=== PATIENT | female | born 1985 | race Caucasian/White ===

== ENCOUNTER 2019-03-11 03:38 | Emergency (ER) | payer BC, OTHER ==
--- NOTE | 2019-03-11 03:53 | ED Physician Documentation ---
PD HPI ABD PAIN - Stated complaint Stated Complaint: ABD PX - Chief complaint Chief Complaint: Abd Pain - History obtained from History obtained from: Patient - History of Present Illness Timing - onset: How many hours ago (2) Timing - duration: Hours (2) Timing - details: Abrupt onset, Still present Quality: Cramping, Aching, Pain Location: RUQ, Epigastric Radiation: Upper back Improved by: No: Laying still, Position Worsened by: Eating, Breathing, Palpation Associated symptoms: Nausea. No: Fever, Vomiting, Diarrhea, Constipation, Dysuria, Chest pain Similar symptoms before: Has not had sx before Recently seen: Not recently seen Review of Systems Constitutional: denies: Fever Nose: denies: Rhinorrhea / runny nose, Congestion Throat: denies: Sore throat Respiratory: denies: Cough GI: reports: Abdominal Pain, Nausea. 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 : None HEENT: None Psych: Anxiety Musculoskeletal: None Derm: Herpes zoster - Past Surgical History Past Surgical History: No /SHROUD LINE TIER: Dilation and currettage - Present Medications Home Medications: Ambulatory Orders Medication Instructions Recorded Confirmed Levonorgestrel [Mirena] 1 each IY DAILY 10/12/15 10/20/15 Famotidine 20 mg PO DAILY #30 tablet 03/11/19 Hydrocodone/Acetaminophen [[place] 1 each PO Q6H PRN #15 tablet 03/11/19 5-325 Tablet] Lidocaine Viscous 2% [Xylocaine 5 ml PO Q4H PRN #100 ml 03/11/19 Viscous 2%] Ondansetron Odt [Zofran] 4 mg TL Q6H PRN #15 tablet 03/11/19 - Allergies Allergies/Adverse Reactions: Allergies Allergy/AdvReac Type Severity Reaction Status Date / Time No Known Drug Allergies Allergy Verified 03/25/13 08:01 - Social History Does the pt smoke?: No Smoking Status: Never smoker Does the pt drink ETOH?: Yes Does the pt have substance abuse?: No - Immunizations Immunizations are current?: Yes - POLST Patient has POLST: No PD ED PE NORMAL - Vitals Vital signs reviewed: Yes - General General: Alert and oriented X 3, Well developed/nourished - HEENT HEENT: PERRL (nonicteric), Pharynx benign - Neck Neck: Supple, no meningeal sign, No adenopathy - Cardiac Cardiac: RRR, No murmur - Respiratory Respiratory: Clear bilaterally - Abdomen Abdomen: Normal bowel sounds, Soft, Non distended, No organomegaly, Other (very tender epigastric to RUQ area with guarding and percussion tenderness. ) - Back Back: No CVA TTP - Derm Derm: Normal color, Warm and dry - Extremities Extremities: Normal ROM s pain, No edema, No calf tenderness / cord - Neuro Neuro: Alert and oriented X 3, No motor deficit, Normal speech Results - Vitals Vitals: Vital Signs - 24 hr 03/11/19 03:45 Temperature 36.3 C L Heart Rate 78 Respiratory 16 Rate Blood Pressure 115/73 O2 Saturation 100 Oxygen O2 Source Room air - Labs Labs: Laboratory Tests 03/11/19 03/11/19 03/11/19 03:30 03:55 03:55 WBC 7.4 RBC 4.17 L Hgb 11.9 L Hct 36.5 L MCV 87.5 MCH 28.5 MCHC 32.6 RDW 13.6 Plt Count 244 MPV 8.3 Neut # (Auto) 3.1 Lymph # (Auto) 3.0 [place] # (Auto) 0.7 Eos # (Auto) 0.5 Baso # (Auto) 0.0 Absolute Nucleated RBC 0.00 Nucleated RBC % 0.0 Sodium 140 Potassium 3.9 Chloride 106 Carbon Dioxide 27 Anion Gap 7.0 BUN 10 Creatinine 1.0 Estimated GFR (MDRD) 63 L Glucose 102 H Calcium 9.0 Total Bilirubin 0.4 AST 23 ALT 13 Alkaline Phosphatase 54 Total Protein 7.0 Albumin 4.3 Globulin 2.7 Albumin/Globulin Ratio 1.6 Lipase 39 Urine Color YELLOW Urine Clarity CLEAR Urine pH 5.5 Ur Specific [place] >=1.030 H Urine Protein NEGATIVE Urine Glucose (UA) NEGATIVE Urine Ketones TRACE Urine Occult Blood NEGATIVE Urine Nitrite NEGATIVE Urine Bilirubin NEGATIVE Urine Urobilinogen 0.2 (NORMAL) Ur Leukocyte Esterase NEGATIVE Ur Microscopic Review NOT INDICATED Urine Culture Comments NOT INDICATED Urine HCG, Qual NEGATIVE PD MEDICAL DECISION MAKING - ED course Complexity details: re-evaluated patient (She had considerable improvement from the GI cocktail as well as morphine IV. Labs and ultrasound are normal. Presume gastritis or esophageal spasm.), considered differential (Consideration of gallbladder spasm given the abruptness and severity of the pain versus pancreatitis versus gastritis. Will check labs and ultrasound. Will give GI cocktail and pain medicine.), d/w patient Departure - Departure Disposition: 01 Home, Self Care Clinical Impression: Epigastric pain Gastritis Qualifiers: Gastritis type: unspecified gastritis Chronicity: acute Gastritis bleeding: without bleeding Qualified Code(s): K29.00 - Acute gastritis without bleeding Condition: Stable Record reviewed to determine appropriate education?: Yes Instructions: ED PUD Vs Gastritis Prescriptions: Famotidine 20 mg PO DAILY #30 tablet Hydrocodone/Acetaminophen [[place] 5-325 Tablet] 1 each PO Q6H PRN #15 tablet PRN Reason: Pain Lidocaine Viscous 2% [Xylocaine Viscous 2%] 5 ml PO Q4H PRN #100 ml PRN Reason: Pain Ondansetron Odt [Zofran] 4 mg TL Q6H PRN #15 tablet PRN Reason: Nausea / Vomiting Comments: Stay well-hydrated. [place] food for a day or 2 at least. Take an acid reducing medicines such as famotidine daily for the next few weeks. Use antacid such as Maalox or Mylanta if needed for stomach discomfort. You can add in some lidocaine to that if needed. Avoid NSAIDs. Use Tylenol or hydrocodone as needed for pain and ondansetron for nausea. Rest off work and school today. Recheck if not improving well over the next few days or if you have a lot of recurrent episodes not improved with medicines. Forms: Activity restrictions
[2019-03-11] MEDS ORDERED: LIDOCAINE VISCOUS 2% 15 ML UDC MM STA (04:00)
[2019-03-11] MEDS ORDERED: MAG HYDROX/AL HYDROX/SIMETH 30 ML UDC PO STA (04:00)
[2019-03-11] MEDS ORDERED: MORPHINE 10 MG/ML VIAL IVP STA (04:00)
[2019-03-11] MEDS ORDERED: ONDANSETRON 4 MG/2 ML VIAL IVP STA (04:01)
[2019-03-11 04:25] LABS: BASOPHILS % (AUTO) 0.4 %; EOSINOPHILS # (AUTO) 0.5 10^3/uL (0.0-0.7); EOSINOPHILS % (AUTO) 6.9 %; HGB - HEMOGLOBIN 11.9 g/dL (12.0-16.0); LYMPHOCYTES % (AUTO) 40.8 %; MEAN CORPUSCULAR HEMOGLOBIN 28.5 pg (27.0-31.0); MEAN CORPUSCULAR HGB CONC 32.6 g/dL (32.0-36.0); MEAN CORPUSCULAR VOLUME 87.5 fL (81.0-99.0); MEAN PLATELET VOLUME 8.3 fL (7.9-10.8); MONOCYTES # (AUTO) 0.7 10^3/uL (0.0-1.0); MONOCYTES % (AUTO) 9.4 %; NEUTROPHILS # (AUTO) 3.1 10^3/uL (1.5-6.6); NEUTROPHILS % (AUTO) 42.5 %; PLT - PLATELET COUNT 244 10^3/uL (130-450); RED BLOOD COUNT 4.17 10^6/uL (4.20-5.40); RED CELL DISTRIBUTION WIDTH 13.6 % (12.0-15.0); WHITE BLOOD COUNT 7.4 x10^3/uL (4.8-10.8)
[2019-03-11 04:30] LABS: BILIRUBIN,TOTAL 0.4 mg/dL (0.2-1.0)
[2019-03-11 04:31] LABS: ALBUMIN 4.3 g/dL (3.2-5.5); ALBUMIN/GLOBULIN RATIO 1.6 (1.0-2.2)
--- NOTE | 2019-03-11 05:25 | Ultrasound Report ---
Reason: epigastric/RUQ abd pain abruptly few hours ago Procedure Date: 03/11/2019 Accession Number: [id number] / [id number] Procedure: US - Abdomen Limited CPT Code: FULL RESULT: EXAM: ABDOMEN ULTRASOUND LIMITED, RUQ EXAM DATE: 03/11/2019 04:44 AM. CLINICAL HISTORY: Right upper quadrant and epigastric pain, abrupt onset a few hours ago. COMPARISON: None. TECHNIQUE: Real-time scanning was performed with static images obtained. FINDINGS: Liver: Normal echogenicity. No suspicious focal lesion. Liver measures 14.6 cm in length. Portal Vein: Patent with hepatopetal flow. Gallbladder: Mildly distended. There is no wall thickening. No pericholecystic fluid. A few dependent rounded abnormalities, nonmobile. These may be areas of adherent sludge and/or tiny polyps. Biliary System: CBD measures 5.1 mm. No intrahepatic or extrahepatic ductal dilatation. Pancreas: Normal appearing head and body. Other portions are obscured by overlying structures. Right Kidney: Visualized portions of the right kidney are without significant abnormality. Right kidney measures 10.2 cm in length. Other: None. IMPRESSION: 1. No acute cholecystitis. No biliary dilation. Mild gallbladder hydrops, nonspecific. RADIA
[2019-03-11 05:34] LABS: BILIRUBIN,URINE NEGATIVE (NEGATIVE); GLUCOSE, URINE (UA) NEGATIVE (NEGATIVE); KETONES,URINE (UA) TRACE mg/dL (NEGATIVE); LEUKOCYTE ESTERASE, URINE NEGATIVE (NEGATIVE); NITRITE,URINE NEGATIVE (NEGATIVE); OCCULT BLOOD,URINE NEGATIVE (NEGATIVE); PH,URINE 5.5 PH (5.0-7.5); PROTEIN,URINE NEGATIVE (NEGATIVE); UROBILINOGEN,URINE 0.2 (NORMAL) E.U./dL (NORMAL)
[2019-03-11 05:39] LABS: CLARITY,URINE CLEAR (CLEAR); HCG UR QUAL NEGATIVE
[2019-03-11 06:01] VITALS: BP 109/62
== END 2019-03-11 05:50 | disposition home or self-care (01) ==
LOC: ED 03:38
DX: K29.00 Acute gastritis without bleeding (principal)
CPT/HCPCS: 36415; 76705; 80053; 81003; 81025; 83690; 85025; 96374; 96375; 99283; A9270; 81001; 87086

== ENCOUNTER 2019-04-06 07:44 | Emergency (ER) | payer BC ==
[2019-04-06] MEDS ORDERED: SUCRALFATE 1 GM/10 ML UDC PO STA (08:49)
[2019-04-06] MEDS ORDERED: LIDOCAINE VISCOUS 2% 15 ML UDC MM STA (08:49)
[2019-04-06] MEDS ORDERED: MAG HYDROX/AL HYDROX/SIMETH 30 ML UDC PO STA (08:50)
--- NOTE | 2019-04-06 08:52 | ED Physician Documentation ---
PD HPI ABD PAIN - Stated complaint Stated Complaint: ABD PX - Chief complaint Chief Complaint: Abd Pain - History obtained from History obtained from: Patient, Family - History of Present Illness Timing - onset: Enter time (399), Today Timing - duration: Hours Timing - details: Abrupt onset, Still present Quality: Sharp, Pain Location: Epigastric Radiation: Upper back Improved by: Meds Associated symptoms: Nausea. No: Vomiting, Diarrhea, Constipation Similar symptoms before: Diagnosis (PUD) Recently seen: Emergency Dept - Additional information Additional information: 34-year-old female with a recent history of gastritis has developed acute epigastric pain again this morning. She was unable to get improvement with the medication she had for the GI cocktail. She states that she used Mylanta and 5 mL of viscous lidocaine without relief. She did have her gallbladder imaged and this was apparently negative. The patient reports the use of a glass of wine last night and she drinks infrequently. She denies any use of ibuprofen or Aleve. Review of Systems Constitutional: denies: Fever Eyes: denies: Decreased vision Ears: denies: Ear pain Nose: denies: Rhinorrhea / runny nose, Congestion Throat: denies: Sore throat Cardiac: denies: Chest pain / pressure, Palpitations Respiratory: denies: Dyspnea, Cough GI: reports: Abdominal Pain, Nausea. 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 : None HEENT: None Psych: Anxiety Musculoskeletal: None Derm: Herpes zoster - Past Surgical History Past Surgical History: No /MEAT BONER AND SLICER: Dilation and currettage - Present Medications Home Medications: Ambulatory Orders Medication Instructions Recorded Confirmed Famotidine 20 mg PO 04/06/19 Sucralfate [Carafate] 1 gm PO ACHS #60 tablet 04/06/19 - Allergies Allergies/Adverse Reactions: Allergies Allergy/AdvReac Type Severity Reaction Status Date / Time No Known Drug Allergies Allergy Verified 04/06/19 07:49 - Social History Does the pt smoke?: No Smoking Status: Never smoker Does the pt drink ETOH?: Yes Does the pt have substance abuse?: No - Immunizations Immunizations are current?: Yes - POLST Patient has POLST: No PD ED PE NORMAL - Vitals Vital signs reviewed: Yes (normal ) - General General: Alert and oriented X 3, No acute distress, Well developed/nourished - HEENT HEENT: Atraumatic, PERRL, EOMI - Neck Neck: Supple, no meningeal sign - Cardiac Cardiac: RRR, No murmur - Respiratory Respiratory: No respiratory distress, Clear bilaterally - Abdomen Abdomen: Soft, Other (epigastric and RUQ pain to palpation) - Back Back: No CVA TTP, No spinal TTP - Derm Derm: Normal color, Warm and dry, No rash - Extremities Extremities: No deformity, No edema - Neuro Neuro: Alert and oriented X 3, replenishment analyst 2-12 intact, No motor deficit, No sensory deficit, Normal speech Eye Opening: Spontaneous Motor: Obeys Commands Verbal: Oriented GCS Score: 15 - Psych Psych: Normal mood, Normal affect Results - Vitals Vitals: Vital Signs - 24 hr 04/06/19 07:48 Temperature 36.8 C Heart Rate 79 Respiratory 18 Rate Blood Pressure 120/66 O2 Saturation 95 Oxygen O2 Source Room air - Labs Labs: Laboratory Tests 04/06/19 04/06/19 04/06/19 07:50 07:55 07:55 WBC 6.3 RBC 4.41 Hgb 12.5 Hct 38.4 MCV 87.1 MCH 28.3 MCHC 32.4 RDW 13.3 Plt Count 253 MPV 8.5 Neut # (Auto) 2.5 Lymph # (Auto) 2.5 [place] # (Auto) 0.6 Eos # (Auto) 0.7 Baso # (Auto) 0.0 Absolute Nucleated RBC 0.00 Nucleated RBC % 0.0 Sodium 139 Potassium 4.1 Chloride 102 Carbon Dioxide 28 Anion Gap 9.0 BUN 12 Creatinine 1.1 H Estimated GFR (MDRD) 56 L Glucose 102 H Calcium 9.3 Total Bilirubin 0.4 AST 17 ALT 12 Alkaline Phosphatase 46 Total Protein 7.2 Albumin 4.3 Globulin 2.9 Albumin/Globulin Ratio 1.5 Lipase 32 Urine Color YELLOW Urine Clarity HAZY Urine pH 5.5 Ur Specific [place] 1.025 Urine Protein NEGATIVE Urine Glucose (UA) NEGATIVE Urine Ketones TRACE Urine Occult Blood NEGATIVE Urine Nitrite NEGATIVE Urine Bilirubin NEGATIVE Urine Urobilinogen 0.2 (NORMAL) Ur Leukocyte Esterase SMALL H Ur Microscopic Review INDICATED Urine Culture Comments Not Reportable Urine HCG, Qual NEGATIVE Procedures - Bedside sono Bedside sono by EMP: With use of bedside ultrasound the gallbladder is imaged it is distended there are no obvious stones it is sonographically tender and there is no wall thickening or pericholecystic fluid. Palpation of the gallbladder in this manner results and nausea. PD MEDICAL DECISION MAKING - ED course Complexity details: reviewed results, re-evaluated patient, considered differential, d/w patient, d/w family ED course: 34-year-old female with a history of gastritis has developed symptoms again this morning and she is administered a GI cocktail consisting of Carafate viscous lidocaine and Mylanta. The patient has improvement with these maneuvers and I will add Carafate into her regimen increase her Pepcid AC to twice per day and have her stop the alcohol. Departure - Departure Disposition: Home, Self Care Clinical Impression: Gastritis Qualifiers: Gastritis type: unspecified gastritis Chronicity: acute Gastritis bleeding: without bleeding Qualified Code(s): K29.00 - Acute gastritis without bleeding Instructions: ED PUD Vs Gastritis Follow-Up: Modesto Can MD [Provider Admit Priv/Credential] - Prescriptions: Sucralfate [Carafate] 1 gm PO ACHS #60 tablet Comments: Today it appears your stomach is the source of your pain again. My recommendations are to increase your Pepcid AC to twice per day and take the Carafate as prescribed for at least 1 to 2 weeks. Follow-up with the surgeon for further evaluation. Forms: Activity restrictions
[2019-04-06 08:53] LABS: BILIRUBIN,URINE NEGATIVE (NEGATIVE); GLUCOSE, URINE (UA) NEGATIVE (NEGATIVE); KETONES,URINE (UA) TRACE mg/dL (NEGATIVE); LEUKOCYTE ESTERASE, URINE SMALL (NEGATIVE); NITRITE,URINE NEGATIVE (NEGATIVE); OCCULT BLOOD,URINE NEGATIVE (NEGATIVE); PH,URINE 5.5 PH (5.0-7.5); PROTEIN,URINE NEGATIVE (NEGATIVE); UROBILINOGEN,URINE 0.2 (NORMAL) E.U./dL (NORMAL)
[2019-04-06 08:55] LABS: BASOPHILS % (AUTO) 0.5 %; EOSINOPHILS # (AUTO) 0.7 10^3/uL (0.0-0.7); EOSINOPHILS % (AUTO) 10.5 %; HGB - HEMOGLOBIN 12.5 g/dL (12.0-16.0); LYMPHOCYTES # (AUTO) 2.5 10^3/uL (1.5-3.5); LYMPHOCYTES % (AUTO) 39.4 %; MEAN CORPUSCULAR HEMOGLOBIN 28.3 pg (27.0-31.0); MEAN CORPUSCULAR HGB CONC 32.4 g/dL (32.0-36.0); MEAN CORPUSCULAR VOLUME 87.1 fL (81.0-99.0); MEAN PLATELET VOLUME 8.5 fL (7.9-10.8); MONOCYTES # (AUTO) 0.6 10^3/uL (0.0-1.0); MONOCYTES % (AUTO) 9.1 %; NEUTROPHILS # (AUTO) 2.5 10^3/uL (1.5-6.6); NEUTROPHILS % (AUTO) 40.5 %; PLT - PLATELET COUNT 253 10^3/uL (130-450); RED BLOOD COUNT 4.41 10^6/uL (4.20-5.40); RED CELL DISTRIBUTION WIDTH 13.3 % (12.0-15.0); WHITE BLOOD COUNT 6.3 x10^3/uL (4.8-10.8)
[2019-04-06 09:00] LABS: ALBUMIN 4.3 g/dL (3.2-5.5); ALBUMIN/GLOBULIN RATIO 1.5 (1.0-2.2); BILIRUBIN,TOTAL 0.4 mg/dL (0.2-1.0); CALCIUM 9.3 mg/dL (8.5-10.3); CREATININE 1.1 mg/dL (0.4-1.0); TOTAL PROTEIN 7.2 g/dL (6.7-8.2)
[2019-04-06 09:20] LABS: CLARITY,URINE HAZY (CLEAR); HCG UR QUAL NEGATIVE
[2019-04-06 09:34] LABS: BACTERIA,URINE Few /HPF (None Seen); RBC,URINE 0-5 /HPF (0-5); SQUAMOUS EPITHELIAL CELL,UR MOD Squamous (<= Few)
[2019-04-06 09:35] LABS: MUCUS,URINE Few Strands
[2019-04-06 09:49] VITALS: BP 114/59
== END 2019-04-06 09:48 | disposition home or self-care (01) ==
LOC: ED 07:44
DX: K29.00 Acute gastritis without bleeding (principal)
CPT/HCPCS: 36415; 80053; 81001; 81025; 83690; 85025; 99283; A9270; 81003; 87086

== ENCOUNTER 2020-03-01 16:18 | Outpatient (CLI) | payer BC | END 2020-03-01 16:19 | disposition home or self-care (01) | LOC: COV 16:18 | PROVIDERS: ATTEND Family Medicine | DX: R05 Cough (principal); R50.9 Fever, unspecified | CPT/HCPCS: 81599 ==

== ENCOUNTER 2021-05-10 15:10 | Emergency (ER) | payer BC ==
--- NOTE | 2021-05-10 15:25 | ED Physician Documentation ---
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 : None HEENT: None Psych: Anxiety Musculoskeletal: None Derm: Herpes zoster - Past Surgical History Past Surgical History: No /GRAPPLER: Dilation and currettage - Present Medications Home Medications: Ambulatory Orders Medication Instructions Recorded Confirmed Famotidine 20 mg PO 04/06/19 Sucralfate [Carafate] 1 gm PO ACHS #60 tablet 04/06/19 - Allergies Allergies/Adverse Reactions: Allergies Allergy/AdvReac Type Severity Reaction Status Date / Time No Known Drug Allergies Allergy Verified 05/10/21 15:22 - Social History Does the pt smoke?: No Smoking Status: Never smoker Does the pt drink ETOH?: Yes Does the pt have substance abuse?: No - Immunizations Immunizations are current?: Yes - POLST Patient has POLST: No Results - Vitals Vitals: Vital Signs - 24 hr 05/10/21 15:18 Temperature 36.9 C Heart Rate 78 Respiratory 16 Rate Blood Pressure 134/76 H O2 Saturation 100 Oxygen O2 Source Room air
--- NOTE | 2021-05-10 15:53 | ED Physician Documentation ---
History of Present Illness - Stated complaint Stated Complaint: FEMALE - Chief complaint Chief Complaint: Wound - Additonal information Additional information: 36-year-old female presents the emergency department for evaluation of painful rash on her left buttock. She reports that about 1 week ago she began feeling pain in her left buttock and she thought simply that the buttock was bruised. However a few days later she began noticing that she had a painful blister. Patient did have extensive chickenpox as a child and has not received the shingles vaccine. She has had no fevers. No history of similar. 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 : None HEENT: None Psych: Anxiety Musculoskeletal: None Derm: Herpes zoster - Past Surgical History Past Surgical History: Yes /DIGITAL DIRECTOR: Dilation and currettage - Present Medications Home Medications: Ambulatory Orders Medication Instructions Recorded Confirmed Famotidine 20 mg PO 04/06/19 Sucralfate [Carafate] 1 gm PO ACHS #60 tablet 04/06/19 Gabapentin [Neurontin] 300 mg PO TID #39 05/10/21 Valacyclovir HCl [Valtrex] 1,000 mg PO TID 7 Days #42 tablet 05/10/21 - Allergies Allergies/Adverse Reactions: Allergies Allergy/AdvReac Type Severity Reaction Status Date / Time No Known Drug Allergies Allergy Verified 05/10/21 15:22 - Social History Does the pt smoke?: No Smoking Status: Never smoker Does the pt drink ETOH?: Yes Does the pt have substance abuse?: No - Immunizations Immunizations are current?: Yes - POLST Patient has POLST: No PD ED PE EXPANDED - General General: Alert, No acute distress - Derm Derm: Other (Blistering lesion left buttock. Various stages of healing with ulceration and scabs. Correlates with S2 dermatome) Results - Vitals Vitals: Vital Signs - 24 hr 05/10/21 15:18 Temperature 36.9 C Heart Rate 78 Respiratory 16 Rate Blood Pressure 134/76 H O2 Saturation 100 Oxygen O2 Source Room air PD MEDICAL DECISION MAKING - ED course Complexity details: d/w patient ED course: 36-year-old female presents emergency department for evaluation of left buttock pain and now painful vesicular rash correlating with the S2 dermatome distribution. History of chickenpox as a child but has not received the shingles vaccine. Exam is consistent with shingles. She will be started on valacyclovir as well as Neurontin secondary to pain. Will recommend continu ation of lidocaine gel. Continue follow-up with primary care provider. Emergent return precautions discussed. Departure - Departure Disposition: Home, Self Care Clinical Impression: Shingles Qualifiers: Herpes zoster complications: without complications Qualified Code(s): B02.9 - Zoster without complications Condition: Stable Record reviewed to determine appropriate education?: Yes Instructions: ED Shingles Prescriptions: Gabapentin [Neurontin] 300 mg PO TID #39 Valacyclovir HCl [Valtrex] 1,000 mg PO TID 7 Days #42 tablet Comments: The rash that you have on your buttocks is consistent with shingles. Please fill the valacyclovir and begin taking 3 times a day for the next week. I have also ordered a medication called gabapentin or Neurontin that can help with the nerve pain. Please start by taking 300 mg on day 1, 300 mg twice daily on day 2, and 300 mg three times daily on day 3 for a total of 2 weeks. Please continue to apply the lidocaine ointment You can receive the shingles vaccine once this episode is over. I would like you to follow up with your primary doctor in 2-3 weeks to discuss this ED visit.
[2021-05-10 16:10] VITALS: BP 126/70
== END 2021-05-10 16:12 | disposition home or self-care (01) ==
LOC: ED 15:10 → SUPCPDRO 15:10 → ED 16:12
DX: B02.9 Zoster without complications (principal)
CPT/HCPCS: 99282; 99283

== ENCOUNTER 2023-02-14 10:35 | Outpatient (CLI) | payer BC ==
--- NOTE | 2023-02-14 14:08 | XRAY Report ---
PROCEDURE: Lumbar Spine 2 View INDICATIONS: LOW BACK PAIN TECHNIQUE: 2 views of the lumbar spine were acquired. COMPARISON: None. FINDINGS: Bones: 5 [id number] vertebrae are present. Minimal right convexity curvature centered at L3. N o vertebral body compression fractures. Minimal/equivocal multilevel degenerative changes. Soft tissues: Overlying bowel gas pattern is normal. No suspicious soft tissue calcifications. An IUD projects over the pelvis. IMPRESSION: 1. No lumbar spine fracture identified radiographically. 2. Minimal/equivocal degenerative changes of the lumbar spine. If symptoms persist, follow-up radiogr aphs and/or CT or MRI may be helpful for further evaluation. Reviewed by: Junior Buenrostro MD on 02/14/2023 2:07 PM PDT Approved by: Junior Buenrostro MD on 02/14/2023 2:07 PM PDT Station ID: [id number]
== END 2023-02-14 10:36 | disposition home or self-care (01) ==
LOC: DI 10:35
PROVIDERS: ATTEND Nurse Practitioner
DX: M47.816 Spondylosis without myelopathy or radiculopathy, lumbar region (principal)

== ENCOUNTER 2023-03-21 07:15 | Outpatient (CLI) | payer BC ==
[2023-03-21 07:45] LABS: ALBUMIN 4.1 g/dL (3.2-5.5); ALBUMIN/GLOBULIN RATIO 1.4 (1.0-2.2); ALKALINE PHOSPHATASE 39 IU/L (42-121); ALT ALANINE AMINOTRANSFERASE 14 IU/L (10-60); AST ASPARTATE AMINOTRANSFERASE 18 IU/L (10-42); BILIRUBIN,TOTAL 0.3 mg/dL (0.2-1.0); BUN - BLOOD UREA NITROGEN 13 mg/dL (6-20); CALCIUM 8.8 mg/dL (8.5-10.3); CARBON DIOXIDE - CO2 26 mmol/L (21-32); CHLORIDE 108 mmol/L (101-111); CHOL/HDL RATIO 4.1 (<4.4); CHOLESTEROL 210 mg/dL; CREATININE 0.8 mg/dL (0.4-1.0); GFR - MDRD 79 (>89); GLUCOSE 115 mg/dL (70-100); HDL CHOLESTEROL 51 mg/dL; LDL CHOLESTEROL,CALCULATED 141 mg/dL; LDL/HDL RATIO 2.8 (<4.4); POTASSIUM 4.4 mmol/L (3.5-5.0); SODIUM 140 mmol/L (135-145); TOTAL PROTEIN 7.1 g/dL (6.7-8.2); TRIGLYCERIDES 91 mg/dL; VLDL CHOLESTEROL 18 mg/dL
[2023-03-21 07:56] LABS: THYROID STIMULATING HORMONE 0.52 uIU/mL (0.34-5.60)
== END 2023-03-21 07:16 | disposition home or self-care (01) ==
LOC: LAB 07:15
PROVIDERS: ATTEND Family Medicine
DX: Z00.00 Encounter for general adult medical examination without abnormal findings (principal); Z13.9 Encounter for screening, unspecified; Z13.6 Encounter for screening for cardiovascular disorders; Z13.29 Encounter for screening for other suspected endocrine disorder; Z13.228 Encounter for screening for other metabolic disorders
CPT/HCPCS: 36415; 80053; 80061; 83721; 84443

== ENCOUNTER 2023-03-31 10:57 | Emergency (ER) | payer BC ==
[2023-03-31 11:08] VITALS: BP 118/63
--- OUTSIDE RECORDS SUMMARY | 2023-03-31 11:15 | EXTERNAL MEDICAL SUMMARY RPT | Continuity of Care Document ---
Author Name Unknown Address [address] [place] [address] Phone Organization [facility] Address [address] [place] [address] Phone Care Team Providers Care Roster Clerk Name Role Phone Unavailable Unavailable Unavailable Estrella Cat Akins Enp Unavailable Unavail able Stuart Cohen Unavailable Unavailable Medications date description facility 2023-02-07 00:00 methylprednisolone All 2023-02-07 00:00 diclofenac sodium All 2023-02-19 00:00 Fluticasone Propion-Salmeterol [facility] 2023-02-07 00:00 methylprednisolone All 2023-01-12 00:00 [facility] 2023-01-23 00:00 [facility] 2023-02-19 00:00 Albuterol Sulfate [facility] 2023-02-07 00:00 methylprednisolone All 2023-02-07 00:00 diclofenac sodium All 2023-02-07 00:00 diclofenac sodium All 2023-02-07 00:00 methylprednisolone All 2023-02-07 00:00 diclofenac sodium All 2023-02-07 00:00 KETOROLAC TROMETHAMINE All Problems date description facility 2023-02-07 00:00 Low back pain All 2023-02-07 00:00 Lumbago All 2023-02-07 00:00 Low back pain, unspecified All Procedures date description facility 2023-02-07 00:00 Visit Code Hold All 2023-02-07 00:00 IM or SQ Injection All 2023-02-07 00:00 Ketorolac Tromethamine 60 mg/2 ml Soln All Results/Labs test date author facility value unit interpretation Result panel 1 (unknown) (no date) (unknown) (unknown) (no value) (units unknown) (unknown) (unknown) (no date) (unknown) (unknown) [id number] (units unknown) (unknown) (unknown) (no date) (unknown) (unknown) 03/01/23 (units unknown) (unknown) (unknown) (no date) (unknown) (unknown) 38 yo female p resents today for an annual physical. (units unknown) (unknown) (unknown) (no date) (unknown) (unknown) Age/Sex: 38 / F Date of Service: (units unknown) (unknown) (unknown) (no date) (unknown) (unknown) Allergies (units unknown) (unknown) (unknown) (no date) (unknown) (unknown) [place] [address] (units unknown) (unknown) (unknown) (no date) (unknown) (unknown) Anxiety (-2014) (uni ts unknown) (unknown) (unknown) (no date) (unknown) (unknown) Asthma (units unknown) (unknown) (unknown) (no date) (unknown) (unknown) Attending Dr: Stuart Cohen D.O. (units unknown) (unknown) (unknown) (no date) (unknown) (unknown) : 3 Acct:[id number] (units unknown) (unknown) (unknown) (no date) (unknown) (unknown) Dept at . (units unknown) (unknown) (unknown) (no date) (unknown) (unknown) Documented By: Stuart Cohen D.O. 03/01/23 1359 (units unknown) (unknown) (unknown) (no date) (unknown) (unknown) Draft (units unknown) (unknown) (unknown) (no date) (unknown) (unknown) Family History (units unknown) (unknown) (unknown) (no date) (unknown) (unknown) Family Practic e Office Visit (units unknown) (unknown) (unknown) (no date) (unknown) (unknown) Father Cancer (units unknown) (unknown) (unknown) (no date) (unknown) (unknown) [facility] (units unknown) (unknown) (unknown) (no date) (unknown) (unknown) History of hea rt disease (units unknown) (unknown) (unknown) (no date) (unknown) (unknown) Hyperlipidemia (unit s unknown) (unknown) (unknown) (no date) (unknown) (unknown) Hypertension (units unknown) (unknown) (unknown) (no date) (unknown) (unknown) Intake Note: (units unknown) (unknown) (unknown) (no date) (unknown) (unknown) Intake perform ed by: Johanny Novoa (units unknown) (unknown) (unknown) (no date) (unknown) (unknown) Intake (units unknown) (unknown) (unknown) (no date) (unknown) (unknown) Intake- [place] [facility] Staff (units unknown) (unknown) (unknown) (no date) (unknown) (unknown) Last PAP: (units unknown) (unknown) (unknown) (no date) (unknown) (unknown) Last mammo: (units unknown) (unknown) (unknown) (no date) (unknown) (unknown) Loc: [facility] (units unknown) (unknown) (unknown) (no date) (unknown) (unknown) Medical Histor y (Updated 05/19/22 @ 16:24 by Stuart Cohen DO) (units unknown) (unknown) (unknown) (no date) (unknown) (unknown) No Known Drug Allergies Allergy (Verified 05/19/22 15:56) (units unknown) (unknown) (unknown) (no date) (unknown) (unknown) PFSH (units unknown) (unknown) (unknown) (no date) (unknown) (unknown) Patient: Mónica Zelaya MR#: M (units unknown) (unknown) (unknown) (no date) (unknown) (unknown) Preventative h ealth care (units unknown) (unknown) (unknown) (no date) (unknown) (unknown) Reason For Visit (un its unknown) (unknown) (unknown) (no date) (unknown) (unknown) Signed By: (units unknown) (unknown) (unknown) (no date) (unknown) (unknown) Smoking Status : Never smoker (units unknown) (unknown) (unknown) (no date) (unknown) (unknown) This note may have been all or partially generated using voice recognition (units unknown) (unknown) (unknown) (no date) (unknown) (unknown) Tobacco + Subs tance Use (units unknown) (unknown) (unknown) (no date) (unknown) (unknown) Tobacco Status (unit s unknown) (unknown) (unknown) (no date) (unknown) (unknown) Visit Reasons: Annual Physical (units unknown) (unknown) (unknown) (no date) (unknown) (unknown) alcohol intake : current (occasionally ) (units unknown) (unknown) (unknown) (no date) (unknown) (unknown) have occurred. If there are any questions, please contact the Medical Records (units unknown) (unknown) (unknown) (no date) (unknown) (unknown) may occur. Occ asional wrong-word or 'sound-alike' substitutions may have (units unknown) (unknown) (unknown) (no date) (unknown) (unknown) occurred due t o the inherent limitations of voice recognition software. Please (units unknown) (unknown) (unknown) (no date) (unknown) (unknown) read the note carefully and recognize, using context, where these substitutions (units unknown) (unknown) (unknown) (no date) (unknown) (unknown) software. 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 (units unknown) (unknown) (unknown) (no date) (unknown) (unknown) Age/Sex: 38 / F Date of Service: (units unknown) (unknown) (unknown) (no date) (unknown) (unknown) Allergies (units unknown) (unknown) (unknown) (no date) (unknown) (unknown) [place] [address] (units unknown) (unknown) (unknown) (no date) (unknown) (unknown) Anxiety (-2014) (uni ts unknown) (unknown) (unknown) (no date) (unknown) (unknown) Asthma (units unknown) (unknown) (unknown) (no date) (unknown) (unknown) Attending Dr: Stuart Cohen D.O. (units unknown) (unknown) (unknown) (no date) (unknown) (unknown) BMI 27.0 (units unknown) (unknown) (unknown) (no date) (unknown) (unknown) BP 110/64 (units unknown) (unknown) (unknown) (no date) (unknown) (unknown) Blood Pressure Location Lt brachial (units unknown) (unknown) (unknown) (no date) (unknown) (unknown) D) 1 tab PO BI D 05/19/22 [History Confirmed 03/01/23] (units unknown) (unknown) (unknown) (no date) (unknown) (unknown) : 3 Acct:[id number] (units unknown) (unknown) (unknown) (no date) (unknown) (unknown) Dept at . (units unknown) (unknown) (unknown) (no date) (unknown) (unknown) Diskus) 1 inh inhalation BID #[id number] ea 02/19/23 [Rx Confirmed 03/01/23] (units unknown) (unknown) (unknown) (no date) (unknown) (unknown) Documented By: Stuart Cohen D.O. 03/01/23 1359 (units unknown) (unknown) (unknown) (no date) (unknown) (unknown) Draft (units unknown) (unknown) (unknown) (no date) (unknown) (unknown) Family History (units unknown) (unknown) (unknown) (no date) (unknown) (unknown) Family Practic e Office Visit (units unknown) (unknown) (unknown) (no date) (unknown) (unknown) Father Cancer (units unknown) (unknown) (unknown) (no date) (unknown) (unknown) [facility] (units unknown) (unknown) (unknown) (no date) (unknown) (unknown) Health Managem ent reviewed with patient: Yes (units unknown) (unknown) (unknown) (no date) (unknown) (unknown) Health Management (u nits unknown) (unknown) (unknown) (no date) (unknown) (unknown) Height 5 ft 3 in (un its unknown) (unknown) (unknown) (no date) (unknown) (unknown) History of hea rt disease (units unknown) (unknown) (unknown) (no date) (unknown) (unknown) Hyperlipidemia (unit s unknown) (unknown) (unknown) (no date) (unknown) (unknown) Hypertension (units unknown) (unknown) (unknown) (no date) (unknown) (unknown) Intake Note: (units unknown) (unknown) (unknown) (no date) (unknown) (unknown) Intake perform ed by: Johanny Novoa (units unknown) (unknown) (unknown) (no date) (unknown) (unknown) Intake (units unknown) (unknown) (unknown) (no date) (unknown) (unknown) Intake- [place] [facility] Staff (units unknown) (unknown) (unknown) (no date) (unknown) (unknown) Last PAP: 2021 , [facility], normal result (units unknown) (unknown) (unknown) (no date) (unknown) (unknown) Last mammo: n/a (uni ts unknown) (unknown) (unknown) (no date) (unknown) (unknown) Loc: [facility] (units unknown) (unknown) (unknown) (no date) (unknown) (unknown) Medical Histor y (Updated 05/19/22 @ 16:24 by Stuart Cohen DO) (units unknown) (unknown) (unknown) (no date) (unknown) (unknown) Medications (units unknown) (unknown) (unknown) (no date) (unknown) (unknown) No Known Drug Allergies Allergy (Verified 03/01/23 14:06) (units unknown) (unknown) (unknown) (no date) (unknown) (unknown) Oxygen Deliver y Method room air (units unknown) (unknown) (unknown) (no date) (unknown) (unknown) PFSH (units unknown) (unknown) (unknown) (no date) (unknown) (unknown) Patient: Mónica Zelaya MR#: M (units unknown) (unknown) (unknown) (no date) (unknown) (unknown) Position Sitting (un its unknown) (unknown) (unknown) (no date) (unknown) (unknown) Preventative h ealth care (units unknown) (unknown) (unknown) (no date) (unknown) (unknown) Pulse 67 (units unknown) (unknown) (unknown) (no date) (unknown) (unknown) Pulse Oximetry (%) 9 9 (units unknown) (unknown) (unknown) (no date) (unknown) (unknown) Pulse Source Monitor (units unknown) (unknown) (unknown) (no date) (unknown) (unknown) Reason For Visit (un its unknown) (unknown) (unknown) (no date) (unknown) (unknown) Signed By: (units unknown) (unknown) (unknown) (no date) (unknown) (unknown) Smoking Status : Never smoker (units unknown) (unknown) (unknown) (no date) (unknown) (unknown) This note may have been all or partially generated using voice recognition (units unknown) (unknown) (unknown) (no date) (unknown) (unknown) Tobacco + Subs tance Use (units unknown) (unknown) (unknown) (no date) (unknown) (unknown) Tobacco Status (unit s unknown) (unknown) (unknown) (no date) (unknown) (unknown) Visit Reasons: Annual Physical (units unknown) (unknown) (unknown) (no date) (unknown) (unknown) Vitals (units unknown) (unknown) (unknown) (no date) (unknown) (unknown) Weight 152 lb 8 oz ( units unknown) (unknown) (unknown) (no date) (unknown) (unknown) [Rx Confirmed 03/01/23] (units unknown) (unknown) (unknown) (no date) (unknown) (unknown) albuterol sulf ate 90 mcg/actuation aerosol inhaler 2 puff inhalation Q4-6H PRN (units unknown) (unknown) (unknown) (no date) (unknown) (unknown) alcohol intake : current (occasionally ) (units unknown) (unknown) (unknown) (no date) (unknown) (unknown) cetirizine 5 mg-pseudoephedrine ER 120 mg tablet,extended release,12hr (Zyrtec (units unknown) (unknown) (unknown) (no date) (unknown) (unknown) fluticasone 25 0 mcg-salmeterol 50 mcg/dose blistr powdr for inhalation (Advair (units unknown) (unknown) (unknown) (no date) (unknown) (unknown) have occurred. If there are any questions, please contact the Medical Records (units unknown) (unknown) (unknown) (no date) (unknown) (unknown) may occur. Occ asional wrong-word or 'sound-alike' substitutions may have (units unknown) (unknown) (unknown) (no date) (unknown) (unknown) montelukast 10 mg tablet See Rx Instructions .Route .COMPLEX #30 tabs 01/23/23 (units unknown) (unknown) (unknown) (no date) (unknown) (unknown) occurred due t o the inherent limitations of voice recognition software. Please (units unknown) (unknown) (unknown) (no date) (unknown) (unknown) read the note carefully and recognize, using context, where these substitutions (units unknown) (unknown) (unknown) (no date) (unknown) (unknown) shortness of b reath or wheezing #8.5 grams 02/19/23 [Rx Confirmed 03/01/23] (units unknown) (unknown) (unknown) (no date) (unknown) (unknown) software. 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 (units unknown) (unknown) (unknown) (no date) (unknown) (unknown) substance use type: does not use (units unknown) (unknown) Result panel 3 (unknown) (no date) (unknown) (unknown) (no value) (units unknown) (unknown) (unknown) (no date) (unknown) (unknown) (1) Well adult: (uni ts unknown) (unknown) (unknown) (no date) (unknown) (unknown) (2) Asthma: (units unknown) (unknown) (unknown) (no date) (unknown) (unknown) (3) Anxiety: (units unknown) (unknown) (unknown) (no date) (unknown) (unknown) (4) Family his tory of hyperlipidemia: (units unknown) (unknown) (unknown) (no date) (unknown) (unknown) [id number] (units unknown) (unknown) (unknown) (no date) (unknown) (unknown) 03/01/23 1450 (units unknown) (unknown) (unknown) (no date) (unknown) (unknown) 03/01/23 (units unknown) (unknown) (unknown) (no date) (unknown) (unknown) 14:06 (units unknown) (unknown) (unknown) (no date) (unknown) (unknown) 38 yo female p resents today for an annual physical. (units unknown) (unknown) (unknown) (no date) (unknown) (unknown) 38-year-old fe male presents the clinic for routine history and physical in (units unknown) (unknown) (unknown) (no date) (unknown) (unknown) Abdomen-soft nontender, no HSM, no palpable masses rebound or guarding (units unknown) (unknown) (unknown) (no date) (unknown) (unknown) Age/Sex: 38 / F Date of Service: (units unknown) (unknown) (unknown) (no date) (unknown) (unknown) Allergies (units unknown) (unknown) (unknown) (no date) (unknown) (unknown) [place] [address] (units unknown) (unknown) (unknown) (no date) (unknown) (unknown) Anxiety (-2014) (uni ts unknown) (unknown) (unknown) (no date) (unknown) (unknown) Assessment + Plan (u nits unknown) (unknown) (unknown) (no date) (unknown) (unknown) Assessment and Plan: (units unknown) (unknown) (unknown) (no date) (unknown) (unknown) Asthma severit y: moderate Asthma persistence: persistent Asthma (units unknown) (unknown) (unknown) (no date) (unknown) (unknown) Asthma (units unknown) (unknown) (unknown) (no date) (unknown) (unknown) Attending Dr: Stuart Cohen D.O. (units unknown) (unknown) (unknown) (no date) (unknown) (unknown) BMI 27.0 (units unknown) (unknown) (unknown) (no date) (unknown) (unknown) BP 110/64 (units unknown) (unknown) (unknown) (no date) (unknown) (unknown) Blood Pressure Location Lt brachial (units unknown) (unknown) (unknown) (no date) (unknown) (unknown) Chest-heart re gular rate and rhythm lungs clear to auscultation no wheezes rales (units unknown) (unknown) (unknown) (no date) (unknown) (unknown) Chief Complaint (uni ts unknown) (unknown) (unknown) (no date) (unknown) (unknown) Chief Complain t: Routine history and physical, review underlying chronic medical (units unknown) (unknown) (unknown) (no date) (unknown) (unknown) D) 1 tab PO BI D 05/19/22 [History Confirmed 03/01/23] (units unknown) (unknown) (unknown) (no date) (unknown) (unknown) : 3 Acct:[id number] (units unknown) (unknown) (unknown) (no date) (unknown) (unknown) Denies any mitali nt pain or other musculoskeletal complaints (units unknown) (unknown) (unknown) (no date) (unknown) (unknown) Dept at . (units unknown) (unknown) (unknown) (no date) (unknown) (unknown) Details: (units unknown) (unknown) (unknown) (no date) (unknown) (unknown) Diskus) 1 inh inhalation BID #[id number] ea 02/19/23 [Rx Confirmed 03/01/23] (units unknown) (unknown) (unknown) (no date) (unknown) (unknown) Documented By: Stuart Cohen D.O. 03/01/23 1359 (units unknown) (unknown) (unknown) (no date) (unknown) (unknown) Exam Narrative (unit s unknown) (unknown) (unknown) (no date) (unknown) (unknown) Exam Narrative: (uni ts unknown) (unknown) (unknown) (no date) (unknown) (unknown) Exam (units unknown) (unknown) (unknown) (no date) (unknown) (unknown) Family History (units unknown) (unknown) (unknown) (no date) (unknown) (unknown) Family Practic e Office Visit (units unknown) (unknown) (unknown) (no date) (unknown) (unknown) Family history of hyperlipidemia (units unknown) (unknown) (unknown) (no date) (unknown) (unknown) Father Cancer (units unknown) (unknown) (unknown) (no date) (unknown) (unknown) [facility] (units unknown) (unknown) (unknown) (no date) (unknown) (unknown) General physic al examination, physical examination (units unknown) (unknown) (unknown) (no date) (unknown) (unknown) HPI (units unknown) (unknown) (unknown) (no date) (unknown) (unknown) Head-normoceph alic atraumatic, eyes PERRLA EOMI, TMs clear, nasal septum (units unknown) (unknown) (unknown) (no date) (unknown) (unknown) Health Managem ent reviewed with patient: Yes (units unknown) (unknown) (unknown) (no date) (unknown) (unknown) Health Management (u nits unknown) (unknown) (unknown) (no date) (unknown) (unknown) Height 5 ft 3 in (un its unknown) (unknown) (unknown) (no date) (unknown) (unknown) History of hea rt disease (units unknown) (unknown) (unknown) (no date) (unknown) (unknown) Hyperlipidemia (unit s unknown) (unknown) (unknown) (no date) (unknown) (unknown) Hypertension (units unknown) (unknown) (unknown) (no date) (unknown) (unknown) Intake Note: (units unknown) (unknown) (unknown) (no date) (unknown) (unknown) Intake perform ed by: Joahnny Novoa (units unknown) (unknown) (unknown) (no date) (unknown) (unknown) Intake (units unknown) (unknown) (unknown) (no date) (unknown) (unknown) Intake- [place] [facility] Staff (units unknown) (unknown) (unknown) (no date) (unknown) (unknown) Last PAP: 2021 , [facility], normal result (units unknown) (unknown) (unknown) (no date) (unknown) (unknown) Last mammo: n/a (uni ts unknown) (unknown) (unknown) (no date) (unknown) (unknown) Loc: [facility] (units unknown) (unknown) (unknown) (no date) (unknown) (unknown) MM screening m ammo BI Today Z12.31 - Encounter for screening mammogram for (units unknown) (unknown) (unknown) (no date) (unknown) (unknown) Medical Histor y (Updated 03/01/23 @ 14:47 by Stuart Cohen DO) (units unknown) (unknown) (unknown) (no date) (unknown) (unknown) Medications (units unknown) (unknown) (unknown) (no date) (unknown) (unknown) Mentions that her father has a history of hyperlipidemia will check her (units unknown) (unknown) (unknown) (no date) (unknown) (unknown) Musculoskeleta l no gross joint deformity range of motion intact equal strength (units unknown) (unknown) (unknown) (no date) (unknown) (unknown) Neck-supple no thyromegaly, JVD or lymphadenopathy (units unknown) (unknown) (unknown) (no date) (unknown) (unknown) Neurologically cranial nerves 2-12 grossly intact, no ataxia negative Romberg no (units unknown) (unknown) (unknown) (no date) (unknown) (unknown) No Known Drug Allergies Allergy (Verified 03/01/23 14:06) (units unknown) (unknown) (unknown) (no date) (unknown) (unknown) No abdominal p ain or change in bowel habits reported, has no urinary (units unknown) (unknown) (unknown) (no date) (unknown) (unknown) No concerns at today's visit. No identify all major changes in her underlying (units unknown) (unknown) (unknown) (no date) (unknown) (unknown) No neck pain reported, swallowing difficulties, lymph node enlargement (units unknown) (unknown) (unknown) (no date) (unknown) (unknown) Orders (units unknown) (unknown) (unknown) (no date) (unknown) (unknown) Orders: (units unknown) (unknown) (unknown) (no date) (unknown) (unknown) Oxygen Deliver y Method room air (units unknown) (unknown) (unknown) (no date) (unknown) (unknown) PFSH (units unknown) (unknown) (unknown) (no date) (unknown) (unknown) Patient denies chest pain with exertion, shortness of breath with physical (units unknown) (unknown) (unknown) (no date) (unknown) (unknown) Patient denies headaches, visual changes, hearing loss, balance issues (units unknown) (unknown) (unknown) (no date) (unknown) (unknown) Patient is wit hout focal neurologic complaints (units unknown) (unknown) (unknown) (no date) (unknown) (unknown) Patient's asth ma is been relatively well controlled using her Advair she offers (units unknown) (unknown) (unknown) (no date) (unknown) (unknown) Patient: Mónica Zelaya MR#: M (units unknown) (unknown) (unknown) (no date) (unknown) (unknown) Position Sitting (un its unknown) (unknown) (unknown) (no date) (unknown) (unknown) Preventative h ealth care (units unknown) (unknown) (unknown) (no date) (unknown) (unknown) Pulse 67 (units unknown) (unknown) (unknown) (no date) (unknown) (unknown) Pulse Oximetry (%) 9 9 (units unknown) (unknown) (unknown) (no date) (unknown) (unknown) Pulse Source Monitor (units unknown) (unknown) (unknown) (no date) (unknown) (unknown) Qualifiers: (units unknown) (unknown) (unknown) (no date) (unknown) (unknown) ROS Narrative (units unknown) (unknown) (unknown) (no date) (unknown) (unknown) ROS Narrative: (unit s unknown) (unknown) (unknown) (no date) (unknown) (unknown) ROS (units unknown) (unknown) (unknown) (no date) (unknown) (unknown) Reason For Visit (un its unknown) (unknown) (unknown) (no date) (unknown) (unknown) Signed By: <Electronically signed by Stuart Cohen D.O.> (units unknown) (unknown) (unknown) (no date) (unknown) (unknown) Signed (units unknown) (unknown) (unknown) (no date) (unknown) (unknown) Skin no suspic ious appearing lesions, nevi or other abnormalities (units unknown) (unknown) (unknown) (no date) (unknown) (unknown) Skin no suspic ious lesions reported (units unknown) (unknown) (unknown) (no date) (unknown) (unknown) Smoking Status : Never smoker (units unknown) (unknown) (unknown) (no date) (unknown) (unknown) Status: Acute (units unknown) (unknown) (unknown) (no date) (unknown) (unknown) Status: Chronic (uni ts unknown) (unknown) (unknown) (no date) (unknown) (unknown) The patient is not had any real issues recently with anxiety overall notes no (units unknown) (unknown) (unknown) (no date) (unknown) (unknown) This note may have been all or partially generated using voice recognition (units unknown) (unknown) (unknown) (no date) (unknown) (unknown) Tobacco + Subs tance Use (units unknown) (unknown) (unknown) (no date) (unknown) (unknown) Tobacco Status (unit s unknown) (unknown) (unknown) (no date) (unknown) (unknown) Visit Reasons: Annual Physical (units unknown) (unknown) (unknown) (no date) (unknown) (unknown) Vital signs ar e reported, charted and reviewed with patient (units unknown) (unknown) (unknown) (no date) (unknown) (unknown) Vitals (units unknown) (unknown) (unknown) (no date) (unknown) (unknown) Weight 152 lb 8 oz ( units unknown) (unknown) (unknown) (no date) (unknown) (unknown) Well adult (units unknown) (unknown) (unknown) (no date) (unknown) (unknown) Well appearing adult without complaints, contributed to history and exam (units unknown) (unknown) (unknown) (no date) (unknown) (unknown) [Rx Confirmed 03/01/23] (units unknown) (unknown) (unknown) (no date) (unknown) (unknown) a mammogram in routine blood work intervention pending those services specially (units unknown) (unknown) (unknown) (no date) (unknown) (unknown) activity (units unknown) (unknown) (unknown) (no date) (unknown) (unknown) albuterol sulf ate 90 mcg/actuation aerosol inhaler 2 puff inhalation Q4-6H PRN (units unknown) (unknown) (unknown) (no date) (unknown) (unknown) alcohol intake : current (occasionally ) (units unknown) (unknown) (unknown) (no date) (unknown) (unknown) bilaterally (units unknown) (unknown) (unknown) (no date) (unknown) (unknown) cetirizine 5 mg-pseudoephedrine ER 120 mg tablet,extended release,12hr (Zyrtec (units unknown) (unknown) (unknown) (no date) (unknown) (unknown) cholesterol to day we discussed issues related to statin therapy healthy active (units unknown) (unknown) (unknown) (no date) (unknown) (unknown) complication t ype: with acute exacerbation Qualified Code(s): J45.41 - Moderate (units unknown) (unknown) (unknown) (no date) (unknown) (unknown) difficulties (units unknown) (unknown) (unknown) (no date) (unknown) (unknown) fluticasone 25 0 mcg-salmeterol 50 mcg/dose blistr powdr for inhalation (Advair (units unknown) (unknown) (unknown) (no date) (unknown) (unknown) focal neurolog ic deficits (units unknown) (unknown) (unknown) (no date) (unknown) (unknown) have occurred. If there are any questions, please contact the Medical Records (units unknown) (unknown) (unknown) (no date) (unknown) (unknown) health. The pa jacquelyn remains active is showing healthy choices for dietary inta (units unknown) (unknown) (unknown) (no date) (unknown) (unknown) history of hyperlipidemia. Otherwise the patient notes no substantial change in (units unknown) (unknown) (unknown) (no date) (unknown) (unknown) ke as well as exercise. Preventative health services were scheduled to include (units unknown) (unknown) (unknown) (no date) (unknown) (unknown) lifestyle to i nclude low-cholesterol diet (units unknown) (unknown) (unknown) (no date) (unknown) (unknown) lists (units unknown) (unknown) (unknown) (no date) (unknown) (unknown) malignant neop lasm of breast (units unknown) (unknown) (unknown) (no date) (unknown) (unknown) may occur. Occ asional wrong-word or 'sound-alike' substitutions may have (units unknown) (unknown) (unknown) (no date) (unknown) (unknown) midline, denti tion intact (units unknown) (unknown) (unknown) (no date) (unknown) (unknown) montelukast 10 mg tablet See Rx Instructions .Route .COMPLEX #30 tabs 01/23/23 (units unknown) (unknown) (unknown) (no date) (unknown) (unknown) no issues rela ronit to acute exacerbations illness and or ER visits (units unknown) (unknown) (unknown) (no date) (unknown) (unknown) occurred due t o the inherent limitations of voice recognition software. Please (units unknown) (unknown) (unknown) (no date) (unknown) (unknown) or rhonchi, go od peripheral pulses (units unknown) (unknown) (unknown) (no date) (unknown) (unknown) persistent ast hma with (acute) exacerbation (units unknown) (unknown) (unknown) (no date) (unknown) (unknown) problems (units unknown) (unknown) (unknown) (no date) (unknown) (unknown) read the note carefully and recognize, using context, where these substitutions (units unknown) (unknown) (unknown) (no date) (unknown) (unknown) review of unde rlying chronic medical conditions to include asthma and a family (units unknown) (unknown) (unknown) (no date) (unknown) (unknown) reviewed her p ast medical, surgical family medical history including medication (units unknown) (unknown) (unknown) (no date) (unknown) (unknown) shortness of b reath or wheezing #8.5 grams 02/19/23 [Rx Confirmed 03/01/23] (units unknown) (unknown) (unknown) (no date) (unknown) (unknown) software. 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 We (units unknown) (unknown) (unknown) (no date) (unknown) (unknown) with a family history of hypertrophic (units unknown) (unknown) Social History date description facility 2023-02-07 00:00 Unknown if ever smoked All 2023-03-01 00:00 Never smoked tobacco (finding) [facility] Vital Signs date measurement value units 2023-02-07 00:00 BMI 26.77 kg/m2 2023-02-07 00:00 BP_diastolic 87 mmHg 2023-02-07 00:00 BP_systolic 135 mmHg 2023-02-07 00:00 heart_rate 69 /min 2023-02-07 00:00 height_metric 161.29 cm 2023-02-07 00:00 height_standard 63.5 in 2023-02-07 00:00 respiration_rate 18 /min 2023-02-07 00:00 temperature_metric 36.72 C 2023-02-07 00:00 temperature_standard 98.1 F 2023-02-07 00:00 weight_metric 69.4 kg 2023-02-07 00:00 weight_standard 153 lb 2023-03-01 00:00 BMI 27.0 kg/m2 2023-03-01 00:00 BP_diastolic 64 mmHg 2023-03-01 00:00 BP_systolic 110 mmHg 2023-03-01 00:00 heart_rate 67 /min 2023-03-01 00:00 height_metric 160.02 cm 2023-03-01 00:00 height_standard 63 in 2023-03-01 00:00 o2_saturation 99 % 2023-03-01 00:00 weight_metric 69.17 kg 2023-03-01 00:00 weight_standard 152.49 lb
--- NOTE | 2023-03-31 11:51 | ED Physician Documentation ---
PD HPI OPHTHO - Stated complaint Stated Complaint: VISION CHANGES - Chief complaint Chief Complaint: Heent - History obtained from History obtained from: Patient - Additional information Additional information: 38-year-old contact lens wear about an hour ago developed foggy vision in the left eye only while wearing contacts. Since then she has removed her contacts, but continues to have veils and shade in her vision and halos around lights. Really no pain with this per se. 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: Dilation and currettage - Present Medications Home Medications: Ambulatory Orders Medication Instructions Recorded Confirmed Albuterol Sulf [Ventolin Hfa 1 - 2 puffs INH Q4HR PRN #1 inhaler 04/29/22 03/31/23 Inhaler] Montelukast [Singulair] 10 mg PO DAILY 03/31/23 03/31/23 Ofloxacin 0.3% Ophth Drops 2 drops OPTH Q2H #5 ml 03/31/23 [Ocuflox 0.3% Ophth Drops] - Allergies Allergies/Adverse Reactions: Allergies Allergy/AdvReac Type Severity Reaction Status Date / Time No Known Drug Allergies Allergy Verified 03/31/23 11:07 - Social History Does the pt smoke?: No Smoking Status: Never smoker Does the pt drink ETOH?: Yes Does the pt have substance abuse?: No - Immunizations Immunizations are current?: Yes - POLST Patient has POLST: No PD ED PE NORMAL - Vitals Vital signs reviewed: Yes - General General: Alert and oriented X 3, No acute distress - HEENT HEENT: PERRL, EOMI, Other (On fluorescein examination there is a inferior minor corneal abrasion that does cross the visual axis.) - Neck Neck: Supple, no meningeal sign, No bony TTP - Derm Derm: No rash - Neuro Neuro: Alert and oriented X 3, Normal speech Results - Vitals Vitals: Vital Signs - 24 hr 03/31/23 11:04 Temperature 36.5 C Heart Rate 73 Respiratory 16 Rate Blood Pressure 118/63 O2 Saturation 100 Oxygen O2 Source Room air PD Medical Decision Making - ED course ED course: This really looks more like a corneal abrasion than a dozen ulcer. That said out of an abundance of caution I will have her do a frequent topical brady quinolone with close ophthalmologic follow-up and no contacts until cleared. 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 Cheema listed on this form on Sunday for recheck. Until then be fairly church about taking the antibiotic drop every 2 hours including at night. Do not wear your contact lenses until cleared by an medical records specialist. Return if worse.
[2023-03-31] MEDS: OFLOXACIN 0.3% OPHTH DROPS LEFTEYE STA (12:02)
== END 2023-03-31 12:11 | disposition home or self-care (01) ==
LOC: ED 10:57
DX: S05.02XA Injury of conjunctiva and corneal abrasion without foreign body, left eye, initial encounter (principal); X58.XXXA Exposure to other specified factors, initial encounter
CPT/HCPCS: 99281; 99282; A9270

== ENCOUNTER 2023-04-10 09:32 | Outpatient (CLI) | payer BC ==
--- NOTE | 2023-04-11 12:03 | Mammography Report ---
BILATERAL DIGITAL SCREENING MAMMOGRAM 3D/2D: 04/10/2023 CLINICAL: Baseline exam. Routine screening. No prior exams were available for comparison. Both breasts are heterogeneously dense, which may obscure small masses (category c / 51-75% glandular tissue). No significant masses, calcifications, or other findings are seen in either breast. IMPRESSION: NEGATIVE There is no mammographic evidence of malignancy. A 1 year screening mammogram is recommended. Based on the Tyrer Cuzick model (a risk assessment model) the patients lifetime risk is 10.4% and he r 10 year risk is 1.3%. According to the ACR, ACS, and NCCN guidelines, an annual breast MRI exam kathy ng with mammogram is recommended if the patients lifetime risk is 20% or greater. This exam was interpreted at Station ID: [id number]. NOTE: For mammograms, a report in lay terms will be sent to the patient. Approximately 15% of breast malignancies will not be visualized mammographically. In the management of a palpable breast mass, a negative mammogram must not discourage biopsy of a clinically suspicious lesion. Electronically Signed By: Isis [email or web address]:04/10/2023 11:26:28 letter sent: No_Letter ACR BI-RADS Category 1: Negative 3341F PARENCHYMAL PATTERN: (D) - The breast(s) demonstrate(s) heterogeneously dense fibroglandular parrajwinder palumbo. BI-RADS CATEGORY: (1) - 1 Mammogram [id number] 1 year screening LATERALITY: (B)
== END 2023-04-10 09:33 | disposition home or self-care (01) ==
LOC: DI.N 09:32
DX: Z12.31 Encounter for screening mammogram for malignant neoplasm of breast (principal)

== ENCOUNTER 2024-02-26 20:54 | Emergency (ER) | payer BC ==
--- NOTE | 2024-02-26 22:20 | ED Physician Documentation ---
History of Present Illness - Stated complaint Stated Complaint: SOA - Chief complaint Chief Complaint: Resp - Additonal information Additional information: 39-year-old female presenting with shortness of breath and wheeze. Reports upper respiratory tract style symptoms for the last 3-4 days. Seen at walk-in clinic earlier today, given breathing treatment, metered-dose inhaler, course Decadron. Returns to the emergency department as her wheezing has returned. Denies fever, chest pain, abdominal pain, nausea, vomiting, known sick contacts. Declines COVID and influenza testing. 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 : None HEENT: None Psych: Anxiety Musculoskeletal: None Derm: Herpes zoster - Past Surgical History Past Surgical History: 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: 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 and currettage - Present Medications Home Medications: Ambulatory Orders Medication Instructions Recorded Confirmed Albuterol Sulf [Ventolin Hfa 1 - 2 puffs INH Q4HR PRN #1 inhaler 04/29/22 02/26/24 Inhaler] Albuterol 2.5 mg INH Q4H PRN #30 ml 02/26/24 Nebulizer 1 each MC ONCE #1 ea 02/26/24 predniSONE [Prednisone] 20 mg PO DAILY 02/26/24 02/26/24 - Allergies Allergies/Adverse Reactions: Allergies Allergy/AdvReac Type Severity Reaction Status Date / Time No Known Drug Allergies Allergy Verified 02/26/24 21:04 - Social History Does the pt smoke?: No Smoking Status: Never smoker Does the pt drink ETOH?: Yes Does the pt have substance abuse?: No - Immunizations Immunizations are current?: Yes - POLST Patient has POLST: No PD ED PE NORMAL - Vitals Vital signs reviewed: Yes - General General: Alert and oriented X 3, No acute distress, Well developed/nourished - HEENT HEENT: Atraumatic, PERRL, EOMI, Ears normal, Moist mucous membranes, Pharynx benign - Neck Neck: Supple, no meningeal sign, No bony TTP, No adenopathy, Thyroid normal, No JVD - Cardiac Cardiac: RRR, No murmur, No gallop, Strong equal pulses - Respiratory Respiratory: No respiratory distress, Clear bilaterally - Abdomen Abdomen: Normal bowel sounds, Non tender - Female Female : Deferred - Rectal Rectal: Deferred - Back Back: No CVA TTP - Derm Derm: Normal color - Extremities Extremities: No deformity Results - Vitals Vitals: Vital Signs - 24 hr 02/26/24 02/26/24 02/26/24 20:59 22:45 23:04 Temperature 36.8 C Heart Rate 100 102 H Respiratory 24 20 18 Rate Blood Pressure 125/60 O2 Saturation 94 Oxygen O2 Source Room air PD Medical Decision Making - ED course ED course: Patient 39-year-old female with chief complaint wheeze. Afebrile, hemodynamically stable. Obvious upper airway congestion on physical exam. Faint end expiratory wheeze but otherwise clear aeration in all lung corley. No indications pneumonia on physical exam. Patient offered viral testing which was declined in the emergency department. Given breathing treatment. Received dose Decadron earlier today at urgent care. Will discharge with prescription for nebulizer machine and cartridges for use at home. Will encourage careful follow-up with primary care. Prompt return precautions given for any new or worsening symptoms. Departure - Departure Disposition: Home, Self Care Clinical Impression: Asthma Qualifiers: Asthma severity: mild Asthma persistence: intermittent Asthma complication type: with acute exacerbation Qualified Code(s): J45.21 - Mild intermittent asthma with (acute) exacerbation URI (upper respiratory infection) Qualifiers: URI type: unspecified viral URI Qualified Code(s): J06.9 - Acute upper respiratory infection, unspecified Prescriptions: Albuterol 2.5 mg INH Q4H PRN #30 ml PRN Reason: Wheezing Nebulizer 1 each MC ONCE #1 ea Forms: PCP List
[2024-02-26] MEDS: IPRATROPIUM/ALBUTEROL 3 ML NEB INH STA (22:45)
[2024-02-26 23:50] VITALS: BP 131/78; O2SAT 95
== END 2024-02-26 23:42 | disposition home or self-care (01) ==
LOC: ED 20:54
DX: J45.21 Mild intermittent asthma with (acute) exacerbation (principal); J06.9 Acute upper respiratory infection, unspecified; Z79.899 Other long term (current) drug therapy
CPT/HCPCS: 94640; 94664; 99283; 99284